=== PATIENT | male | born 1990 | race Caucasian/White ===

== ENCOUNTER 2018-09-25 08:36 | Observation (INO) | payer OTHER, SELFPAY ==
[2018-09-25] VITALS (21 sets, daily range): BP systolic 103–172; BP diastolic 61–99; PULSE 72–108; RESP 12–20; TEMP 36.3–37.7; O2SAT 93–98; BMI 38.7; BMI 39.4
--- NOTE | 2018-09-25 08:41 | ED.ABDPAIN ---
HPI - Abdominal Pain General Chief Complaint: Skin/Abscess/Foreign Body Stated Complaint: ABCESS Time Seen by Provider: 09/25/18 08:37 Source: patient and family () Mode of arrival: ambulatory Limitations: no limitations History of Present Illness HPI narrative: This is a 28-year-old male who comes to the emergency department with complaint of rectal pain/abscess. Patient states he had similar symptoms about a month ago. He was sent from a walk-in clinic to a specialty physician who I and D did in the clinic. He states that he was up in [facility]. Patient states that he had improvement but he started having symptoms again in the last 24 hr. Patient states the 1st time it sort of slowly came on but this is moved much quicker. He has not had any fevers but has felt chilled and sweaty. He has not had any nausea or vomiting he denies any abdominal pain. He is not having any new GI symptoms otherwise. Patient has pain on the right buttock adjacent to the rectum. Patient is uncomfortable when he tries to walk. Patient denies any other past medical history, he had his ears been back in college but denies any other surgeries. Patient denies any tobacco, no alcohol or illicit. Him and his live in [place] and are supposed to be driving back tomorrow. Related Data Home Medications Medication Instructions Recorded Confirmed No Known Home Medications 09/25/18 09/25/18 Allergies Allergy/AdvReac Type Severity Reaction Status Date / Time No Known Drug Allergies Allergy Verified 09/25/18 08:46 Review of Systems Review of Systems All systems reviewed & are unremarkable except as noted in HPI and below Constitutional Reports chills, Denies fever(s) and Reports night sweats Cardiovascular Denies chest pain and Denies dyspnea Respiratory Denies dyspnea Gastrointestinal Gastrointestinal: Denies abdominal pain, Denies change in bowel habits, Reports tenesmus, Denies diarrhea, Denies nausea and Denies vomiting Genitourinary Denies hematuria, Denies dysuria, Denies flank pain and Denies urinary urgency Integumentary/Breasts Reports as per HPI, Denies rash and Reports other (Hardness in near rectum) [facility] Medical History Obesity (BMI 35.0-39.9 without comorbidity) (Acute) Perirectal abscess (Acute) Family History: Reviewed 09/25/18 by Leif King MD Social History household members: spouse Smoking Status: Never smoker alcohol intake: never Exam Narrative Exam Narrative: GENERAL: Alert and oriented x three, obese male in moderate distress. HEENT: Head normocephalic, atraumatic, EOMI, pupils reactive, face symmetric, moist mucous membranes NECK: Supple, full range of motion CARDIOVASCULAR: Regular rate and rhythm without murmurs, rubs or gallops. RESPIRATORY: Breath sounds equal bilaterally, no wheezes rales or rhonchi. ABDOMEN: Soft, nontender. Normoactive bowel sounds all 4 quadrants. No guarding or rebound, rigidity, no mass. Patient has some induration and very slight erythema adjacent to the rectum on the right buttock, patient also has tenderness on rectal exam at the 9:00 position. No fluctuance that I am able to palpate. There is some induration as well. Patient does not have any discharge. No fistula noted. EXTREMITIES: Normal range of motion, no clubbing or edema. Neurovascularly intact NEUROLOGICAL: Cranial nerves II through XII grossly intact. Moving all extremities SKIN: Warm, dry, no petechiae, no rashes or lesions. Initial Vital Signs Initial Vital Signs: Vital Signs Temperature 99.8 F H 09/25/18 08:41 Pulse Rate 99 H 09/25/18 08:41 Respiratory Rate 20 09/25/18 08:41 Blood Pressure 136/84 09/25/18 08:41 Pulse Oximetry 95 09/25/18 08:41 Course Orders Ordered: ED Orders 09/25/18 09:03 Complete Blood Count AUTO DIFF Stat Comprehensive Metabolic Panel Stat 09/25/18 09:18 Lactate (Lactic Acid) Stat 09/25/18 09:22 Blood Culture Stat 09/25/18 09:23 CT abdomen pelvis w con Stat 09/25/18 13:02 Education, smoking cessation ONGOING 09/25/18 13:03 Consult to Discharge Planning Routine 09/25/18 15:06 Wound Culture and Gram Stain Routine Acetaminophen (Tylenol) 650 mg PO Q6HR PRN PRN Reason: As Needed for Fever/Mild Pain Last Admin: 09/25/18 15:57 Dose: 650 mg Docusate Sodium (Colace) 100 mg PO BID TERESA Hydromorphone HCl (Dilaudid) 0.25 mg IV Q5MIN PRN PRN Reason: Pain, Mild (1-3) Sodium Chloride (Normal Saline 0.9%) 1,000 mls @ 100 mls/hr IV CONT [facility] Last Admin: 09/25/18 16:35 Dose: 100 mls/hr Ampicillin Sodium/Sulbactam (Sodium 3 gm/ Sodium Chloride) 100 mls @ 100 mls/hr IV Q6H [facility] Last Admin: 09/25/18 16:35 Dose: 100 mls/hr Morphine Sulfate (Morphine) 2 mg IV Q4HR PRN PRN Reason: Pain, Moderate (4-6) Ondansetron HCl (Zofran) 4 mg IV Q8HR PRN PRN Reason: Nausea And Vomiting Oxycodone HCl (Percolone) 5 mg PO Q3HR PRN PRN Reason: Pain, Moderate (4-6) Sennosides (Senna) 8.6 mg PO BEDTIME [facility] Discontinued Medications Fentanyl (Sublimaze) 50 mcg IV Q5MIN PRN PRN Reason: Pain, Moderate (4-6) Ampicillin Sodium/Sulbactam (Sodium 1.5 gm/ Sodium Chloride) 100 mls @ 100 mls/hr IV NOW ONE Stop: 09/25/18 08:54 Last Infusion: 09/25/18 10:42 Dose: 0 mls/hr Admin: 09/25/18 09:25 Dose: 100 mls/hr Lactated Ringer's (Lactated Ringers) 1,000 mls @ 42 mls/hr IV CONT [facility] Last Infusion: 09/25/18 15:25 Dose: 0 mls/hr Admin: 09/25/18 13:55 Dose: 42 mls/hr Cefazolin Sodium/Dextrose (Ancef) 2 gm in 100 mls @ 200 mls/hr IV NOW ONE Stop: 09/25/18 15:07 Last Infusion: 09/25/18 14:25 Dose: 0 mls/hr Admin: 09/25/18 14:20 Dose: 200 mls/hr Ketorolac Tromethamine (Toradol) 30 mg IV NOW ONE Stop: 09/25/18 09:03 Last Admin: 09/25/18 09:10 Dose: 30 mg Ketorolac Tromethamine (Toradol) 15 mg IV NOW PRN PRN Reason: Pain, Moderate (4-6) Metoclopramide HCl (Reglan) 10 mg IV NOW PRN PRN Reason: Nausea And Vomiting Midazolam HCl (Versed) 2 mg IV NOW ONE Stop: 09/25/18 13:12 Last Admin: 09/25/18 13:59 Dose: 2 mg Ondansetron HCl (Zofran) 4 mg IV NOW PRN PRN Reason: Nausea And Vomiting Oxycodone/Acetaminophen (Percocet 5/325) 1 tab PO Q30MIN PRN PRN Reason: Mild or moderate pain Vital Signs - 8 hr 09/25/18 10:35 09/25/18 11:47 09/25/18 12:01 Temperature 98.4 F Pulse Rate 88 93 H 86 Respiratory Rate 18 17 18 Blood Pressure 123/61 139/75 Blood Pressure [Right Arm] 126/65 Pulse Oximetry 97 98 97 09/25/18 13:50 09/25/18 14:58 09/25/18 15:02 Temperature 97.6 F 97.5 F L Pulse Rate 96 H 74 76 Respiratory Rate 16 12 14 Blood Pressure 116/69 157/87 H 139/85 Blood Pressure [Right Arm] Pulse Oximetry 93 95 95 09/25/18 15:07 09/25/18 15:10 09/25/18 15:25 Temperature 97.4 F L Pulse Rate 72 90 85 Respiratory Rate 16 20 14 Blood Pressure 136/84 172/99 H 141/92 H Blood Pressure [Right Arm] Pulse Oximetry 95 95 96 09/25/18 15:32 09/25/18 15:40 09/25/18 15:53 Temperature Pulse Rate 94 H 87 93 H Respiratory Rate 20 16 20 Blood Pressure 135/82 148/92 H 131/85 Blood Pressure [Right Arm] Pulse Oximetry 97 97 93 09/25/18 16:00 09/25/18 16:30 09/25/18 17:00 Temperature 98.0 F 98.9 F Pulse Rate 105 H 90 103 H Respiratory Rate 18 18 18 Blood Pressure 137/81 136/87 103/85 Blood Pressure [Right Arm] Pulse Oximetry 95 95 94 MDM - Abdominal Pain Lab Data Attestation: I reviewed the patient's lab results. Result diagrams: 09/25/18 09:03 09/25/18 09:03 Lab Results 1209/25/18 09/25/18 Range/Units 09:03 09:03 09:18 WBC 10.1 (4.5-11.0) X10^3/uL RBC 5.19 (4.5-5.9) X10^6/uL Hgb 14.2 (13.5-17.5) g/dL Hct 40.8 L (41-53) % MCV 78.5 L (80-100) fL MCH 27.4 (26-34) PG MCHC 34.9 (30-36) % RDW 13.5 (11.6-14.8) % Plt Count 214 (150-400) X10^3/uL Neut % (Auto) 77.3 H (50-75) % Lymph % (Auto) 14.7 L (25-40) % [place] % (Auto) 6.4 (3-14) % Eos % (Auto) 0.7 L (2-4) % Baso % (Auto) 0.9 (0-2) % Neut # (Auto) 7800 H (6222-9536) /uL Sodium 142 (137-145) mmol/L Potassium 4.2 (3.4-5.1) mmol/L Chloride 106 (98-107) mmol/L Carbon Dioxide 25 (22-32) mmol/L BUN 13 (9-20) mg/dL Creatinine 1.00 (0.66-1.25) mg/dL Estimated GFR > 60.0 (>60) mL/min BUN/Creatinine Ratio 13.0 (6-22) Glucose 122 H (70-100) mg/dL Lactate 1.0 (0.7-2.1) mmol/L Calcium 9.2 (8.4-10.2) mg/dL Total Bilirubin 1.6 H (0.2-1.3) mg/dL AST 30 (17-59) IU/L ALT 64 (21-72) IU/L Alkaline Phosphatase 55 (38-126) U/L Total Protein 7.2 (6.3-8.2) g/dL Albumin 4.3 (3.5-5.0) g/dL Globulin 2.9 (1.7-4.1) g/dL Albumin/Globulin Ratio 1.5 (1.0-2.8) Imaging Data CT scan - abdomen: Radiologist's impression: [address] [address] [address] Scan Report Signed Patient: AMADA BANEGAS MR#: [id number] : 1990 Acct:[id number] Age/Sex: 28 / M Date of Service: 09/25/18 Loc: ED Accession Number: [id number] Procedure: CT abdomen pelvis w con Ordering Provider: Janeth Krueger D.O. PROCEDURE: CT ABDOMEN PELVIS W CON INDICATIONS: concern for rectal abscess/deeper abscess, recurrent in 1 mo TECHNIQUE: After the administration of intravenous contrast, 5 mm thick sections acquired from the diaphragm to the symphysis. 5 mm coronal and sagittal reformats were acquired. For radiation dose reduction, the following was used: automated exposure control, adjustment of mA and/or kV according to patient size. COMPARISON: None. FINDINGS: Image quality: Excellent. ABDOMEN: Lung bases: Lung bases are clear. Heart size is normal. Solid organs: Liver is normal in size and enhancement. Diffuse fatty infiltration of the liver. Gallbladder is within normal limits. Biliary system is non dilated. Pancreas enhances normally. Spleen is normal in size and enhancement. No adrenal nodules. Kidneys demonstrate normal size and enhancement, without hydronephrosis. Peritoneum and bowel: Bowel loops demonstrate normal wall thickness and caliber. No free fluid or air. The appendix is normal. Nodes and vessels: No retroperitoneal or mesenteric adenopathy by size criteria. Aorta and inferior vena cava are normal in size. Miscellaneous: No ventral hernias. PELVIS: Genitourinary: Bladder wall thickness is normal. Miscellaneous: No inguinal hernias or adenopathy. There is a 2.9 x 3.0 x 5.0 cm fluid collection with enhancing periphery and adjacent soft tissue inflammation anterior to the anorectal junction which is concerning for abscess. Bones: No suspicious bony lesions. No vertebral body compression fractures. IMPRESSION: 1. 2.9 x 2.0 x 5.0 cm walled off fluid collection anterior to the anorectal junction most compatible with abscess. 2. Hepatic steatosis. Dictated by: Emily Evans MD, PhD on 09/25/2018 at 9:45 Approved by: Emily Evans MD, PhD on 09/25/2018 at 9:51 [facility] Narrative Medical decision making narrative: The patient has induration but I am unable to palpate an area of fluctuance or clear abscess. With a recent abscess a month ago and has recurrence in the approximately same location with a involvement intra rectally I would be concerned about a deeper abscess especially as he is quite chilled when he arrived in diaphoretic although his vital signs show a heart rate in the 90s and otherwise afebrile at this time. Discussed with patient and and they are open to doing some lab work and imaging to rule out a deeper or larger abscess/fistula or other concerning change. Lab work does not show any signs of sepsis, patient has slightly elevated pulse at 99 but otherwise has been afebrile, but white count is not elevated, lactate is normal there. Patient's labs show no major changes. CT does show a abscess at the largest diameter 5 cm. This is just anterior to the anorectal junction. Spoke with Dr. King about incision and drainage through the OR. Patient is accepted. Discharge Plan Departure Patient Disposition: Admitted as Observation Clinical Impression: Abscess, anorectal Discharge Date/Time: 09/25/18 11:46 Interventions: ED Discharge Assessment Last Done: 09/25/18 11:47 Instructions: DI for Anal Abscess Additional Instructions: Follow up with your physician in the next 2-3 days for recheck. Call for an appointment. Take antibiotics until completely gone. You may take ibuprofen and/or tylenol for pain. Return to the ER for fevers greater than 100.4F, increasing swelling, pain, or worsening signs of infection, persistent vomiting, abdominal pain, passing out or other new or concerning symptoms. Admit Date/Time: 09/25/18 11:46 Admit Provider: Leif King
--- NOTE | 2018-09-25 08:52 | ED_ITS ---
HPI - Abdominal Pain General Chief Complaint: Skin/Abscess/Foreign Body Stated Complaint: ABCESS Time Seen by Provider: 09/25/18 08:37 Source: patient and family () Mode of arrival: ambulatory Limitations: no limitations History of Present Illness HPI narrative: This is a 28-year-old male who comes to the emergency department with complaint of rectal pain/abscess. Patient states he had similar symptoms about a month ago. He was sent from a walk-in clinic to a specialty physician who I and D did in the clinic. He states that he was up in [facility]. Patient states that he had improvement but he started having symptoms again in the last 24 hr. Patient states the 1st time it sort of slowly came on but this is moved much quicker. He has not had any fevers but has felt chilled and sweaty. He has not had any nausea or vomiting he denies any abdominal pain. He is not having any new GI symptoms otherwise. Patient has pain on the right buttock adjacent to the rectum. Patient is uncomfortable when he tries to walk. Patient denies any other past medical history, he had his ears been back in college but denies any other surgeries. Patient denies any tobacco, no alcohol or illicit. Him and his live in [place] and are supposed to be driving back tomorrow. Related Data Home Medications Medication Instructions Recorded Confirmed No Known Home Medications 09/25/18 09/25/18 Allergies Allergy/AdvReac Type Severity Reaction Status Date / Time No Known Drug Allergies Allergy Verified 09/25/18 08:46 Review of Systems Review of Systems All systems reviewed & are unremarkable except as noted in HPI and below Constitutional Reports chills, Denies fever(s) and Reports night sweats Cardiovascular Denies chest pain and Denies dyspnea Respiratory Denies dyspnea Gastrointestinal Gastrointestinal: Denies abdominal pain, Denies change in bowel habits, Reports tenesmus, Denies diarrhea, Denies nausea and Denies vomiting Genitourinary Denies hematuria, Denies dysuria, Denies flank pain and Denies urinary urgency Integumentary/Breasts Reports as per HPI, Denies rash and Reports other (Hardness in near rectum) [facility] Medical History Obesity (BMI 35.0-39.9 without comorbidity) (Acute) Perirectal abscess (Acute) Family History: Reviewed 09/25/18 by Leif King MD Social History household members: spouse Smoking Status: Never smoker alcohol intake: never Exam Narrative Exam Narrative: GENERAL: Alert and oriented x three, obese male in moderate distress. HEENT: Head normocephalic, atraumatic, EOMI, pupils reactive, face symmetric, moist mucous membranes NECK: Supple, full range of motion CARDIOVASCULAR: Regular rate and rhythm without murmurs, rubs or gallops. RESPIRATORY: Breath sounds equal bilaterally, no wheezes rales or rhonchi. ABDOMEN: Soft, nontender. Normoactive bowel sounds all 4 quadrants. No guarding or rebound, rigidity, no mass. Patient has some induration and very slight erythema adjacent to the rectum on the right buttock, patient also has tenderness on rectal exam at the 9:00 position. No fluctuance that I am able to palpate. There is some induration as well. Patient does not have any discharge. No fistula noted. EXTREMITIES: Normal range of motion, no clubbing or edema. Neurovascularly intact NEUROLOGICAL: Cranial nerves II through XII grossly intact. Moving all extremities SKIN: Warm, dry, no petechiae, no rashes or lesions. Initial Vital Signs Initial Vital Signs: Vital Signs Temperature 99.8 F H 09/25/18 08:41 Pulse Rate 99 H 09/25/18 08:41 Respiratory Rate 20 09/25/18 08:41 Blood Pressure 136/84 09/25/18 08:41 Pulse Oximetry 95 09/25/18 08:41 Course Orders Ordered: ED Orders 09/25/18 09:03 Complete Blood Count AUTO DIFF Stat Comprehensive Metabolic Panel Stat 09/25/18 09:18 Lactate (Lactic Acid) Stat 09/25/18 09:22 Blood Culture Stat 09/25/18 09:23 CT abdomen pelvis w con Stat 09/25/18 13:02 Education, smoking cessation ONGOING 09/25/18 13:03 Consult to Discharge Planning Routine 09/25/18 15:06 Wound Culture and Gram Stain Routine Acetaminophen (Tylenol) 650 mg PO Q6HR PRN PRN Reason: As Needed for Fever/Mild Pain Last Admin: 09/25/18 15:57 Dose: 650 mg Docusate Sodium (Colace) 100 mg PO BID TERESA Hydromorphone HCl (Dilaudid) 0.25 mg IV Q5MIN PRN PRN Reason: Pain, Mild (1-3) Sodium Chloride (Normal Saline 0.9%) 1,000 mls @ 100 mls/hr IV CONT [facility] Last Admin: 09/25/18 16:35 Dose: 100 mls/hr Ampicillin Sodium/Sulbactam (Sodium 3 gm/ Sodium Chloride) 100 mls @ 100 mls/ hr IV Q6H [facility] Last Admin: 09/25/18 16:35 Dose: 100 mls/hr Morphine Sulfate (Morphine) 2 mg IV Q4HR PRN PRN Reason: Pain, Moderate (4-6) Ondansetron HCl (Zofran) 4 mg IV Q8HR PRN PRN Reason: Nausea And Vomiting Oxycodone HCl (Percolone) 5 mg PO Q3HR PRN PRN Reason: Pain, Moderate (4-6) Sennosides (Senna) 8.6 mg PO BEDTIME [facility] Discontinued Medications Fentanyl (Sublimaze) 50 mcg IV Q5MIN PRN PRN Reason: Pain, Moderate (4-6) Ampicillin Sodium/Sulbactam (Sodium 1.5 gm/ Sodium Chloride) 100 mls @ 100 mls/ hr IV NOW ONE Stop: 09/25/18 08:54 Last Infusion: 09/25/18 10:42 Dose: 0 mls/hr Admin: 09/25/18 09:25 Dose: 100 mls/hr Lactated Ringer's (Lactated Ringers) 1,000 mls @ 42 mls/hr IV CONT [facility] Last Infusion: 09/25/18 15:25 Dose: 0 mls/hr Admin: 09/25/18 13:55 Dose: 42 mls/hr Cefazolin Sodium/Dextrose (Ancef) 2 gm in 100 mls @ 200 mls/hr IV NOW ONE Stop: 09/25/18 15:07 Last Infusion: 09/25/18 14:25 Dose: 0 mls/hr Admin: 09/25/18 14:20 Dose: 200 mls/hr Ketorolac Tromethamine (Toradol) 30 mg IV NOW ONE Stop: 09/25/18 09:03 Last Admin: 09/25/18 09:10 Dose: 30 mg Ketorolac Tromethamine (Toradol) 15 mg IV NOW PRN PRN Reason: Pain, Moderate (4-6) Metoclopramide HCl (Reglan) 10 mg IV NOW PRN PRN Reason: Nausea And Vomiting Midazolam HCl (Versed) 2 mg IV NOW ONE Stop: 09/25/18 13:12 Last Admin: 09/25/18 13:59 Dose: 2 mg Ondansetron HCl (Zofran) 4 mg IV NOW PRN PRN Reason: Nausea And Vomiting Oxycodone/Acetaminophen (Percocet 5/325) 1 tab PO Q30MIN PRN PRN Reason: Mild or moderate pain Vital Signs - 8 hr 09/25/18 10:35 09/25/18 11:47 09/25/18 12:01 Temperature 98.4 F Pulse Rate 88 93 H 86 Respiratory Rate 18 17 18 Blood Pressure 123/61 139/75 Blood Pressure [Right Arm] 126/65 Pulse Oximetry 97 98 97 09/25/18 13:50 09/25/18 14:58 09/25/18 15:02 Temperature 97.6 F 97.5 F L Pulse Rate 96 H 74 76 Respiratory Rate 16 12 14 Blood Pressure 116/69 157/87 H 139/85 Blood Pressure [Right Arm] Pulse Oximetry 93 95 95 09/25/18 15:07 09/25/18 15:10 09/25/18 15:25 Temperature 97.4 F L Pulse Rate 72 90 85 Respiratory Rate 16 20 14 Blood Pressure 136/84 172/99 H 141/92 H Blood Pressure [Right Arm] Pulse Oximetry 95 95 96 09/25/18 15:32 09/25/18 15:40 09/25/18 15:53 Temperature Pulse Rate 94 H 87 93 H Respiratory Rate 20 16 20 Blood Pressure 135/82 148/92 H 131/85 Blood Pressure [Right Arm] Pulse Oximetry 97 97 93 09/25/18 16:00 09/25/18 16:30 09/25/18 17:00 Temperature 98.0 F 98.9 F Pulse Rate 105 H 90 103 H Respiratory Rate 18 18 18 Blood Pressure 137/81 136/87 103/85 Blood Pressure [Right Arm] Pulse Oximetry 95 95 94 MDM - Abdominal Pain Lab Data Attestation: I reviewed the patient's lab results. Result diagrams: 09/25/18 09:03 09/25/18 09:03 Lab Results 1209/25/18 09/25/18 Range/Units 09:03 09:03 09:18 WBC 10.1 (4.5-11.0) X10^3/uL RBC 5.19 (4.5-5.9) X10^6/uL Hgb 14.2 (13.5-17.5) g/dL Hct 40.8 L (41-53) % MCV 78.5 L (80-100) fL MCH 27.4 (26-34) PG MCHC 34.9 (30-36) % RDW 13.5 (11.6-14.8) % Plt Count 214 (150-400) X10^3/uL Neut % (Auto) 77.3 H (50-75) % Lymph % (Auto) 14.7 L (25-40) % [place] % (Auto) 6.4 (3-14) % Eos % (Auto) 0.7 L (2-4) % Baso % (Auto) 0.9 (0-2) % Neut # (Auto) 7800 H (7074-9947) /uL Sodium 142 (137-145) mmol/L Potassium 4.2 (3.4-5.1) mmol/L Chloride 106 (98-107) mmol/L Carbon Dioxide 25 (22-32) mmol/L BUN 13 (9-20) mg/dL Creatinine 1.00 (0.66-1.25) mg/dL Estimated GFR > 60.0 (>60) mL/min BUN/Creatinine Ratio 13.0 (6-22) Glucose 122 H (70-100) mg/dL Lactate 1.0 (0.7-2.1) mmol/L Calcium 9.2 (8.4-10.2) mg/dL Total Bilirubin 1.6 H (0.2-1.3) mg/dL AST 30 (17-59) IU/L ALT 64 (21-72) IU/L Alkaline Phosphatase 55 (38-126) U/L Total Protein 7.2 (6.3-8.2) g/dL Albumin 4.3 (3.5-5.0) g/dL Globulin 2.9 (1.7-4.1) g/dL Albumin/Globulin Ratio 1.5 (1.0-2.8) Imaging Data CT scan - abdomen: Radiologist's impression: [address] [address] [address] Scan Report Signed Patient: AMADA BANEGAS MR#: [id number] : 1990 Acct:[id number] Age/Sex: 28 / M Date of Service: 09/25/18 Loc: ED Accession Number: [id number] Procedure: CT abdomen pelvis w con Ordering Provider: Janeth Krueger D.O. PROCEDURE: CT ABDOMEN PELVIS W CON INDICATIONS: concern for rectal abscess/deeper abscess, recurrent in 1 mo TECHNIQUE: After the administration of intravenous contrast, 5 mm thick sections acquired from the diaphragm to the symphysis. 5 mm coronal and sagittal reformats were acquired. For radiation dose reduction, the following was used: automated exposure control, adjustment of mA and/or kV according to patient size. COMPARISON: None. FINDINGS: Image quality: Excellent. ABDOMEN: Lung bases: Lung bases are clear. Heart size is normal. Solid organs: Liver is normal in size and enhancement. Diffuse fatty infiltration of the liver. Gallbladder is within normal limits. Biliary system is non dilated. Pancreas enhances normally. Spleen is normal in size and enhancement. No adrenal nodules. Kidneys demonstrate normal size and enhancement, without hydronephrosis. Peritoneum and bowel: Bowel loops demonstrate normal wall thickness and caliber. No free fluid or air. The appendix is normal. Nodes and vessels: No retroperitoneal or mesenteric adenopathy by size criteria. Aorta and inferior vena cava are normal in size. Miscellaneous: No ventral hernias. PELVIS: Genitourinary: Bladder wall thickness is normal. Miscellaneous: No inguinal hernias or adenopathy. There is a 2.9 x 3.0 x 5.0 cm fluid collection with enhancing periphery and adjacent soft tissue inflammation anterior to the anorectal junction which is concerning for abscess. Bones: No suspicious bony lesions. No vertebral body compression fractures. IMPRESSION: 1. 2.9 x 2.0 x 5.0 cm walled off fluid collection anterior to the anorectal junction most compatible with abscess. 2. Hepatic steatosis. Dictated by: Emily Evans MD, PhD on 09/25/2018 at 9:45 Approved by: Emily Evans MD, PhD on 09/25/2018 at 9:[address] [facility] Narrative Medical decision making narrative: The patient has induration but I am unable to palpate an area of fluctuance or clear abscess. With a recent abscess a month ago and has recurrence in the approximately same location with a involvement intra rectally I would be concerned about a deeper abscess especially as he is quite chilled when he arrived in diaphoretic although his vital signs show a heart rate in the 90s and otherwise afebrile at this time. Discussed with patient and and they are open to doing some lab work and imaging to rule out a deeper or larger abscess/fistula or other concerning change. Lab work does not show any signs of sepsis, patient has slightly elevated pulse at 99 but otherwise has been afebrile, but white count is not elevated, lactate is normal there. Patient's labs show no major changes. CT does show a abscess at the largest diameter 5 cm. This is just anterior to the anorectal junction. Spoke with Dr. King about incision and drainage through the OR. Patient is accepted. Discharge Plan Departure Patient Disposition: Admitted as Observation Clinical Impression: Abscess, anorectal Discharge Date/Time: 09/25/18 11:46 Interventions: ED Discharge Assessment Last Done: 09/25/18 11:47 Instructions: DI for Anal Abscess Additional Instructions: Follow up with your physician in the next 2-3 days for recheck. Call for an appointment. Take antibiotics until completely gone. You may take ibuprofen and/or tylenol for pain. Return to the ER for fevers greater than 100.4F, increasing swelling, pain, or worsening signs of infection, persistent vomiting, abdominal pain, passing out or other new or concerning symptoms. Admit Date/Time: 09/25/18 11:46 Admit Provider: Leif King
[2018-09-25 09:09] LABS: Add Manual Diff / Slide Review NO; Basophils Percent Auto 0.9 % (0-2); Eosinophils Percent Auto 0.7 % (2-4); Hematocrit 40.8 % (41-53); Hemoglobin 14.2 g/dL (13.5-17.5); Lymphocytes Percent Auto 14.7 % (25-40); Mean Corpuscular HGB Conc 34.9 % (30-36); Mean Corpuscular Hemoglobin 27.4 PG (26-34); Mean Corpuscular Volume 78.5 fL (80-100); Monocytes Percent Auto 6.4 % (3-14); Neutrophils Absolute Auto 7800 /uL (1500-7000); Neutrophils Percent Auto 77.3 % (50-75); Platelet Count 214 X10^3/uL (150-400); Red Blood Cell Count 5.19 X10^6/uL (4.5-5.9); Red Cell Distribution Width 13.5 % (11.6-14.8); White Blood Cell Count 10.1 X10^3/uL (4.5-11.0)
[2018-09-25] MEDS: KETOROLAC 60 MG/2 ML VIAL 30 MG IV (09:10)
[2018-09-25 09:22] LABS: Alanine Aminotransferase 64 IU/L (21-72); Albumin 4.3 g/dL (3.5-5.0); Albumin Globulin Ratio 1.5 (1.0-2.8); Alkaline Phosphatase 55 U/L (38-126); Aspartate Aminotransferase 30 IU/L (17-59); Bilirubin Total 1.6 mg/dL (0.2-1.3); Blood Urea Nitrogen 13 mg/dL (9-20); Calcium 9.2 mg/dL (8.4-10.2); Carbon Dioxide 25 mmol/L (22-32); Chloride 106 mmol/L (98-107); Estimated Glomerular Filt Rate > 60.0 mL/min (>60); Globulin 2.9 g/dL (1.7-4.1); Glucose 122 mg/dL (70-100); HEMOLYSIS 18 (0-50); Potassium 4.2 mmol/L (3.4-5.1); Sodium 142 mmol/L (137-145); Total Protein 7.2 g/dL (6.3-8.2)
--- NOTE | 2018-09-25 09:23 | DI.CT.S_ITS ---
PROCEDURE: CT ABDOMEN PELVIS W CON INDICATIONS: concern for rectal abscess/deeper abscess, recurrent in 1 mo TECHNIQUE: After the administration of intravenous contrast, 5 mm thick sections acquired from the diaphragm to the symphysis. 5 mm coronal and sagittal reformats were acquired. For radiation dose reduction, the following was used: automated exposure control, adjustment of mA and/or kV according to patient size. COMPARISON: None. FINDINGS: Image quality: Excellent. ABDOMEN: Lung bases: Lung bases are clear. Heart size is normal. Solid organs: Liver is normal in size and enhancement. Diffuse fatty infiltration of the liver. Gallbladder is within normal limits. Biliary system is non dilated. Pancreas enhances normally. Spleen is normal in size and enhancement. No adrenal nodules. Kidneys demonstrate normal size and enhancement, without hydronephrosis. Peritoneum and bowel: Bowel loops demonstrate normal wall thickness and caliber. No free fluid or air. The appendix is normal. Nodes and vessels: No retroperitoneal or mesenteric adenopathy by size criteria. Aorta and inferior vena cava are normal in size. Miscellaneous: No ventral hernias. PELVIS: Genitourinary: Bladder wall thickness is normal. Miscellaneous: No inguinal hernias or adenopathy. There is a 2.9 x 3.0 x 5.0 cm fluid collection with enhancing periphery and adjacent soft tissue inflammation anterior to the anorectal junction which is concerning for abscess. Bones: No suspicious bony lesions. No vertebral body compression fractures. IMPRESSION: 1. 2.9 x 2.0 x 5.0 cm walled off fluid collection anterior to the anorectal junction most compatible with abscess. 2. Hepatic steatosis. Dictated by: Emily Evans MD, PhD on 09/25/2018 at 9:45 Approved by: Emily Evans MD, PhD on 09/25/2018 at 9:51
[2018-09-25] MEDS: AMPICILLIN/SULBACTAM 1.5 GM 1.5 GM in SODIUM CHLORIDE 0.9% 100 ML IV (09:25)
--- NOTE | 2018-09-25 11:45 | PC.NURSE ---
pt report called to KIRSTY Reynoso for continuation of care. Pt in NAD and pt will be transfer to 220 with tech via stretcher.
--- NOTE | 2018-09-25 13:05 | PM.HP.1 ---
History of Present Illness Date Patient Seen: 09/25/18 Time Patient Seen: 13:05 Chief complaint: ABCESS Narrative: 28-year-old obese but otherwise healthy male who presented to the emergency department early this morning with progressive perianal pain. He had similar symptoms approximately 1 month ago when he was in [place]. He was seen in the emergency department at a local institution there who diagnosed him with a perianal abscess. There was a small incision and drainage done under local anesthesia in the ER only. He did not progress to the operating room. He was placed on antibiotics. No packing or other wound care was instituted. Patient felt better 1 or 2 weeks later but did not notice complete healing. He now presents with the above complaints. No change in bowel habits. No melena, hematochezia, bright red blood per rectum. No spontaneous drainage. No incontinence. No fever or chills. He is not diabetic. Patient History Medical History Obesity (BMI 35.0-39.9 without comorbidity) (Acute) Perirectal abscess (Acute) Family & Social History Family History: Reviewed 09/25/18 by Leif King MD Social History: household members spouse Prior Living Arrangements Apartment/Condo Safety & Behavioral: Feels Safe in Current Yes Environment Been Physically Hurt or No Threatened By a Person Suicidal Ideation Description None Suicide Plan Description No Plan Tobacco & Substance use: Smoking Status Never smoker alcohol intake never Substance Use Type does not use Meds Home Medications Medication Instructions Recorded Confirmed Type No Known Home Medications 09/25/18 09/25/18 History Allergies Allergy/AdvReac Type Severity Reaction Status Date / Time No Known Drug Allergies Allergy Verified 09/25/18 08:46 Review of Systems Review of Systems All systems reviewed & are unremarkable except as noted in HPI and below Exam Vital Signs (past 8 hours): - 09/25/18 08:41 09/25/18 10:35 09/25/18 11:47 Temperature 99.8 F H Pulse Rate 99 H 88 93 H Respiratory Rate 20 18 17 Blood Pressure 136/84 123/61 Blood Pressure [Right Arm] 126/65 Pulse Oximetry 95 97 98 09/25/18 12:01 Temperature 98.4 F Pulse Rate 86 Respiratory Rate 18 Blood Pressure 139/75 Blood Pressure [Right Arm] Pulse Oximetry 97 Oxygen Delivery Method Room Air Oxygen Flow Rate 0 Narrative Exam Narrative: Obese male lying in left lateral decubitus position on the gurney in the emergency department in mild discomfort but no acute distress. Family is at the bedside for my entire visit. Sclera nonicteric Regular rate and rhythm No wheezes Abdomen soft and nondistended. Nontender Focused perianal examination shows induration anteriorly along the perineal raphe bilaterally with overlying erythema. He is tender, mostly toward the right side. Formal digital rectal examination is deferred due to patient discomfort. Extremities show no clubbing or cyanosis Objective Labs Result Diagrams: 09/25/18 09:03 09/25/18 09:03 Labs: Laboratory Results - last 24 hr 09/25/18 09/25/18 09/25/18 09:03 09:03 09:18 WBC 10.1 RBC 5.19 Hgb 14.2 Hct 40.8 L MCV 78.5 L MCH 27.4 MCHC 34.9 RDW 13.5 Plt Count 214 Neut % (Auto) 77.3 H Lymph % (Auto) 14.7 L [place] % (Auto) 6.4 Eos % (Auto) 0.7 L Baso % (Auto) 0.9 Neut # (Auto) 7800 H Sodium 142 Potassium 4.2 Chloride 106 Carbon Dioxide 25 BUN 13 Creatinine 1.00 Estimated GFR > 60.0 BUN/Creatinine Ratio 13.0 Glucose 122 H Lactate 1.0 Calcium 9.2 Total Bilirubin 1.6 H AST 30 ALT 64 Alkaline Phosphatase 55 Total Protein 7.2 Albumin 4.3 Globulin 2.9 Albumin/Globulin Ratio 1.5 CT scan of the abdomen and pelvis was performed per the emergency room physician which I have personally reviewed. Abdomen shows no obvious abnormalities. However, there is a fluid collection consistent with perirectal abscess in the location as above on physical examination. No obvious masses. No extension above the levator muscles based on imaging. Assessment & Plan Plan: Assessment/Plan Narrative: 28-year-old male with recurrent or possibly even progressive perirectal abscess. The incision and drainage previously was done under limited circumstances. I believe he warrants examination under anesthesia with drainage of the abscess. I doubt seton would be indicated but this depends upon intraoperative findings. Technical details of the procedure were discussed. Risks, benefits, alternatives were explained. Risks including but not limited to anesthesia, bleeding, further infection, progressive abscess, pain, need for further surgical procedures, poor wound healing, sphincter injury, fecal incontinence, and need for further treatment were all discussed in detail. All questions were answered to his satisfaction, and he voiced understanding. We will proceed as above later today. Quality VTE Deep Vein Thrombosis/Pulmonary Embolism Present on Admission: No
[2018-09-25] MEDS: LACTATED RINGERS 1,000 ML 42 ML IV (13:55)
--- NOTE | 2018-09-25 13:58 | SUR.OPER ---
Prone on padded OR bed, head in foam head support, gel chest rolls, gel pad under knees, pillow under lower legs, toes free of pressure, arms secured on padded arm boards at <90 degrees abduction. Safety belt at thigh.
[2018-09-25] MEDS: MIDAZOLAM 2 MG/2 ML VIAL IV (13:59)
--- NOTE | 2018-09-25 14:04 | PM.PREOP ---
Pre-operative Note Interval Note Pre-op Check: Yes History & Physical Reviewed by Physician and Yes Exam Performed Changes: No H&P completed within 30 days and has changed as indicated here:: Patient seen and examined in the preoperative area. History and physical examination has not changed obviously over the last several hours since admission. Proceed with examination under anesthesia and drainage of abscess as planned today.
[2018-09-25] MEDS: CEFAZOLIN 2 GM/100 ML FROZ.PIGGY IV (14:20)
--- NOTE | 2018-09-25 15:06 | PM.OP.1 ---
Operative Date/Time/Diagnoses Date of procedure: 09/25/18 Time of procedure: 15:06 Pre-op diagnosis: Perirectal abscess Post-op diagnosis: same Procedure & Clinicians Procedure: 1. Examination under anesthesia 2. Incision and drainage of anterior perirectal abscess Same procedure as scheduled: Yes Indications: 28-year-old obese male who presented with progressive pain in the perianal region. Examination and evaluation were consistent with perirectal abscess. Incision and drainage was recommended. Surgeon: Leif King Click Yes if Unassisted: Yes Anesthesia Type: General Operative Notes Findings: 1. Ralph pus within perirectal abscess extending for at least 10 cm anteriorly along the perineal raphe 2. No evidence of fistula or other anal lesions on examination next 3. Grade 2 internal hemorrhoid disease without thrombosis or inflammation Closure Type: not applicable Specimen(s): other (Fluid for culture and Gram stain) Implants & Drains: 1 inch iodoform packing Applied: other (Packing as above) Estimated Blood Loss (mL): 25 Blood products transfused: none Procedure in detail: After obtaining informed consent the patient was brought to the operating room and left supine on the bed. After satisfactory induction of anesthesia he was placed in prone temo-knife position. All pressure points were padded appropriately. Buttocks were taped apart. SCOAP time out was performed per standard protocol. Perianal area was prepped and draped in usual sterile fashion. Digital rectal examination revealed no masses but there was significant induration along the anterior perianal region as above. Existing scar along the right aspect of the perineal raphe was noted from previous incision and drainage about 1 month ago per the patient's history. Gutiérrez bivalve anoscope was inserted in the anal canal was examined meticulously and circumferentially. Findings are as above. Probe was used to assess for possible fistula but none was appreciated. Therefore the skin overlying the fluctuant mass was incised along the existing scar with 15 scalpel blade. Surgeon's finger was then inserted and blunt dissection was used to disrupt all loculations. Ralph pus was expressed. Specimen was sent. The cavity was actually quite extensive along the anterior aspect but did not extend into the supralevator region or further proximally along the rectum. After the abscess has been adequately drained was irrigated with copious amounts of sterile saline solution. Hemostasis was achieved with the Bovie along the skin edges after taking a small ellipse of skin with a 15 scalpel blade to allow for adequate drainage. After verifying hemostasis the wound was packed with 1 in iodoform gauze. Sterile dressing was applied and the tape was removed. Patient was returned to supine position on the bed, and anesthesia was reversed. Patient was extubated in the operating room and taken recovery in stable condition. Complications: none Condition: stable Disposition: PACU Plan for aftercare: 1. Return to acute Care unit for ongoing convalescence and intravenous antibiotics 2. Remove packing in shower tomorrow and leave wound open to drain
--- NOTE | 2018-09-25 15:29 | SUR.PHASEI ---
attempted to call report but RN's are in report and will call nurse back for report.
--- NOTE | 2018-09-25 15:45 | PC.NURSE ---
Report rec'd from ED RN at 1143. Pt arrived to unit at 1155 via stretcher into room 820 accompanied by his Cecy. Pt to BR with SBA, denies light-headedness or dizziness. Right lower buttock near rectum is red and hard, tender to touch, no open skin area. Pt NPO for surgery today. Pt last ate at 2200 09/24 and drank fluids this AM around 0700 with 800mg of Ibuprofen. Pt to OR at 1334 via bed. Left message with pt's Cecy regarding pt going to OR per pt request. Cecy arrived to unit around 1400 and is in pt's room, pt's cell phone and Cecy's unopened Tylenol bottle in box given back to Cecy as pt had left in room. Cecy aware that her Tylenol needs to be kept on her personal/or in purse and not in pt's room.
[2018-09-25] MEDS: ACETAMINOPHEN 325 MG TABLET 650 MG PO ×2 (15:57→23:07)
[2018-09-25] MEDS: AMPICILLIN/SULBACTAM 3 GM 3 GM in SODIUM CHLORIDE 0.9% 100 ML IV ×2 (16:35→23:01)
[2018-09-25] MEDS: SODIUM CHLORIDE 0.9% 1,000 ML 100 ML IV (16:35)
[2018-09-25] MEDS: SENNOSIDES 8.6 MG TABLET PO (20:56)
[2018-09-25] MEDS: DOCUSATE 100 MG CAPSULE PO (20:56)
[2018-09-26] MEDS: AMPICILLIN/SULBACTAM 3 GM 3 GM in SODIUM CHLORIDE 0.9% 100 ML IV ×2 (03:47→09:13)
[2018-09-26 06:00] VITALS: BP 108/51; PULSE 73; RESP 16; TEMP 36.4; O2SAT 97
[2018-09-26 07:00] VITALS: O2SAT 96
[2018-09-26 08:00] VITALS: BP 115/54; PULSE 71; RESP 14; TEMP 36.5; O2SAT 96
[2018-09-26] MEDS: SODIUM CHLORIDE 0.9% FLUSH 10 ML IV (09:13)
[2018-09-26] MEDS: DOCUSATE 100 MG CAPSULE PO (10:11)
[2018-09-26] MEDS: MORPHINE 2 MG/ML INJ IV (11:00)
--- NOTE | 2018-09-26 11:39 | CM.DANOTE ---
Addendum entered by ALEYDA Garza 09/26/18 14:48: ADD: Per Dr. Finley, pt is medically stable to d/c home with family today and follow up appointment with Dr. King in a week. Pt and spouse agreeable with d/c plan and spouse to provide transport today home to her parent's house. ALEYDA Garza Original Note: Patient is a 28 year old male who was admitted on 09/25/18 for Perirectal Abscess. Pt has [employer] for insurance and his PCP is out of state in [place]. EMR was reviewed. Per MD, pt was taken to O.R. for draining of his abscess and recommending pt stay in town for a few days for his follow up appointment. SW met bedside with pt and spouse and explained role and they confirmed that they live in an apartment in [place] and are here visiting spouse's family for the holidays. [facility] follow up appointment is complete and he is scheduled to work next on Oct 05, 2018. Pt is Independent at baseline with ADL's and works and does not anticipate any SW needs at d/c. Plan: SW to follow for likely pt d/c home to [facility] locally when medically stable prior to return home to [place]. SW to follow for any further identified discharge planning needs. ALEYDA Garza Discharge Planning/Care Management CM Discharge Assessment Start: 09/26/18 11:36 Freq: Status: Active Protocol: Document 09/26/18 11:36 BF (Rec: 09/26/18 11:38 [id number]) Discharge Planning Assessment Assigned House Admin ALEYDA Turner Advance Directives? No Advance Directives on File No History Provided By Patient Significant Other Medical Record Has Patient been admitted in last 30 No days? Prior Living Arrangements Apartment/Condo Household Members spouse Type of transporation used prior to Drives own vehicle admit Comment Resides in apartment with spouse in [place] and here visiting family for the holidays. Independent with ADL's Yes Is patient alert and oriented? Yes Caregiver for Another No Comment Needs unclear at this time, but anticipate home with local family support prior to traveling back to [place]. Barriers to Discharge No Discharge Plan Home Transportation Arrangement Spouse bedside and can provide transport for pt to her parent's house locally. Referrals Initiated None needed Whiteboard Updated in Patient Room with Yes name and ext. # of House Admin Review Status In Process Please Provide Date Initial DC 09/26/18 Assessment Was Performed Next Review Type Continued Stay Review
[2018-09-26 12:00] VITALS: BP 134/79; PULSE 81; RESP 16; TEMP 36.5; O2SAT 98
--- NOTE | 2018-09-26 14:05 | PC.NURSE ---
Am shift Pt is a/o x3, pain has been minimal, I haven't needed anything Shower after breakfast and packing removed from sonya anal i/d. IV Morphine needed for pain during removal. Pt tolerated well. Serosang drainage to packing. Pt reports increased burning after removal, cool compress provided. Improved. rooming in.
--- NOTE | 2018-09-26 14:25 | PM.PN.1 ---
Subjective Date Patient Seen: 09/26/18 Time Patient Seen: 14:25 Interval history: Very pleasant gentleman status post incision and drainage of a perianal abscess. He reports that he was able to shower this morning and removed the packing. He describes his pain as a 2 on a scale of 1-10 and he has only been taking Tylenol. He feels like he can be discharged to home. His and children are with him today Exam Vital Signs (past 8 hours): - 09/26/18 07:00 09/26/18 08:00 Temperature 97.7 F Pulse Rate 71 Respiratory Rate 14 Blood Pressure 115/54 L Pulse Oximetry 96 96 Oxygen Delivery Method Room Air Oxygen Flow Rate 0 Narrative Exam Narrative: Pleasant gentleman in no distress. Wound cavity is clean and dry. Serosanguineous drainage. Objective Labs Result Diagrams: 09/25/18 09:03 09/25/18 09:03 Assessment & Plan Plan: Assessment/Plan Narrative: Discharge home on Augmentin. Sitz baths twice a day to keep the area clean and dry. Follow up with Dr. King in 1 week Quality VTE Deep Vein Thrombosis/Pulmonary Embolism Present on Admission: No
[2018-09-26 15:46] VITALS: BP 130/87; PULSE 81; RESP 16; TEMP 36.8; O2SAT 97
--- NOTE | 2018-09-26 17:50 | PC.NURSE ---
1700- Pt DC complete, pt taken downstairs in WC by INFORMATION MANAGEMENT SPECIALIST, all instructions given and went over with pt and . Verbally demonstrated understanding of wound care instructions, infection symptoms, and medications. Follow up with Dr. King next week. VSS. IV catheter removed.
== END 2018-09-26 17:07 | disposition home or self-care (01) ==
LOC: ED 11:46 → AC 13:33
PROVIDERS: Admitting Provider Surgery; Emergency Provider Emergency Medicine; Visit Provider Surgery
PROC: (CPT 45990; principal; 2018-09-25 14:30)
PROC: (CPT 46040; 2018-09-25 14:30)
DX: K61.1 Rectal abscess (principal); K62.89 Other specified diseases of anus and rectum; E66.9 Obesity, unspecified; Z68.39 Body mass index [BMI] 39.0-39.9, adult; K64.1 Second degree hemorrhoids
CPT/HCPCS: 46040; 36415; 36591; 74177; 80053; 83605; 85025; 87040; 87070; 87075; 87186; 87205; 96365; 96366; 96375; 99222; 99282; 99285; G0378; J0295; J0690; J1100; J1885; J2250; J2270; J2405; J2704; Q9967